=== PATIENT | female | born 1990 | race Caucasian/White ===

== ENCOUNTER 2021-02-12 10:33 | Emergency (ER) | payer OTHER ==
[~2021-02-12] VITALS: Ht 160 cm; Wt 68.0 kg
[2021-02-12 10:43] VITALS: BP 128/91
[2021-02-12] MEDS ORDERED: PROTONIX40 M2 PO (10:47)
[2021-02-12] MEDS ORDERED: CELEBREX 200 M200 M1 PO (10:47)
[2021-02-12] MEDS ORDERED: COMPAZINE10 M2 PO (10:48)
[2021-02-12] MEDS ORDERED: KLONOPIN0.5 MG PO (10:48)
[2021-02-12] MEDS ORDERED: QUETIAPINE FUMA50 M1 PO (10:48)
[2021-02-12] MEDS ORDERED: CONCERTA ER 2727 MG PO (10:49)
[2021-02-12] MEDS ORDERED: CARAFATE1 GM PO (10:50)
[2021-02-12] MEDS ORDERED: EPIPEN0.3 MG/0.1 IM (10:50)
[2021-02-12 10:58] LABS: URINE BILIRUBIN NEGATIVE (Negative); URINE BLOOD NEGATIVE (Negative); URINE COLOR YELLOW; URINE GLUCOSE-RANDOM NEGATIVE (Negative); URINE KETONES NEGATIVE (Negative); URINE LEUKOCYTES-REFLEX NEGATIVE (Negative); URINE NITRITE-REFLEX NEGATIVE (Negative); URINE PROTEIN NEGATIVE (Negative); URINE UROBILINOGEN 0.2 E.U./dl (0.2-1.0)
[2021-02-12 11:06] LABS: URINE CLARITY SL HAZY
[2021-02-12 11:14] LABS: ABSOLUTE BASOPHILS 0.1 thou/uL (0.0-0.2); ABSOLUTE EOSINOPHILS 0.2 thou/uL (0.0-0.7); ABSOLUTE LYMPHOCYTES 2.1 thou/uL (0.8-5.3); ABSOLUTE MONOCYTES 0.9 thou/uL (0.0-1.2); ABSOLUTE NEUTROPHILS 7.4 thou/uL (1.6-8.1); BASOPHILS 0.5 %; EOSINOPHILS 1.7 %; HEMATOCRIT 38.8 % (37.0-47.0); HEMOGLOBIN 13.9 gm/dL (12.0-15.0); LYMPHOCYTES 19.9 %; MCH 31.3 pg (26.0-34.0); MCHC 35.9 g/dL (28.0-37.0); MCV 87.2 fL (80.0-100.0); MONOCYTES 8.8 %; MPV 7.9 fl. (7.2-11.1); NUCLEATED RBCS 0 /100WBC; PLATELET COUNT* 253 thou/uL (150-400); POLYS 69.1 %; RBC 4.45 mil/uL (4.20-5.00); RDW-CV 12.1 % (10.5-14.5); WBC 10.7 thou/uL (4.0-11.0)
[2021-02-12 11:22] LABS: CALCIUM 8.7 mg/dL (8.5-10.1); CREATININE 0.7 mg/dL (0.6-1.3); POTASSIUM 3.9 mmol/L (3.5-5.1)
[2021-02-12 11:25] LABS: MUCUS 0-3 Light strn/LPF (None Seen); SQUAMOUS >10 Many /LPF (0-3)
[2021-02-12 11:27] LABS: BACTERIA-REFLEX 1-9 Few /HPF (None Seen); CASTS None Seen /LPF (None Seen); CRYSTALS None Seen /LPF (None Seen); URINE RBC 0-2 Rare /HPF (0-2); URINE WBC-REFLEX 0-5 Rare /HPF (0-5)
[2021-02-12 11:27] LABS: ALBUMIN 4.1 g/dL (3.4-5.0); TOTAL BILIRUBIN 0.8 mg/dL (<0.1-1.0); TOTAL PROTEIN 7.3 g/dL (6.4-8.2)
[2021-02-12] MEDS ORDERED: TRAMADOL 50 MG50 MG PO (15:59)
[2021-02-12] MEDS ORDERED: CEFDINIR300 MG PO (15:59)
[2021-02-12 16:15] VITALS: BP 118/78
== END 2021-02-12 16:15 | disposition home or self-care (01) ==
LOC: M.ERS 10:33 → M.TBA-ER 13:28 → M.ERS 13:28 → M.TBA-ER 13:28 → M.ERS 16:15
PROVIDERS: Physician Assistant
DX: K52.9 Noninfective gastroenteritis and colitis, unspecified (principal); Z20.822 Contact with and (suspected) exposure to COVID-19; K21.9 Gastro-esophageal reflux disease without esophagitis; Z87.440 Personal history of urinary (tract) infections; Z91.040 Latex allergy status; Z91.013 Allergy to seafood; Z79.899 Other long term (current) drug therapy

== ENCOUNTER 2021-02-13 13:15 | Inpatient (IN) | payer OTHER ==
[~2021-02-13] VITALS: Ht 160 cm; Wt 69.0 kg
[~2021-02-13 13:15] MED LIST: CARAFATE1 GM PO; CEFDINIR300 MG PO; CELEBREX 200 M200 M1 PO; COMPAZINE10 M2 PO; CONCERTA ER 2727 MG PO; EPIPEN0.3 MG/0.1 IM; KLONOPIN0.5 MG PO; PROTONIX40 M2 PO; QUETIAPINE FUMA50 M1 PO; TRAMADOL 50 MG50 MG PO
[2021-02-13 13:36] VITALS: BP 145/96
[2021-02-13 14:19] LABS: ABSOLUTE EOSINOPHILS 0.1 thou/uL (0.0-0.7); ABSOLUTE LYMPHOCYTES 1.7 thou/uL (0.8-5.3); ABSOLUTE MONOCYTES 0.8 thou/uL (0.0-1.2); ABSOLUTE NEUTROPHILS 8.6 thou/uL (1.6-8.1); BASOPHILS 0.3 %; EOSINOPHILS 0.7 %; HEMATOCRIT 38.2 % (37.0-47.0); HEMOGLOBIN 13.6 gm/dL (12.0-15.0); LYMPHOCYTES 15.4 %; MCH 31.4 pg (26.0-34.0); MCHC 35.6 g/dL (28.0-37.0); MCV 88.2 fL (80.0-100.0); MONOCYTES 6.9 %; MPV 8.3 fl. (7.2-11.1); NUCLEATED RBCS 0 /100WBC; PLATELET COUNT* 260 thou/uL (150-400); POLYS 76.7 %; RBC 4.33 mil/uL (4.20-5.00); RDW-CV 12.2 % (10.5-14.5); URINE BILIRUBIN NEGATIVE (Negative); URINE BLOOD NEGATIVE (Negative); URINE CLARITY CLEAR; URINE COLOR YELLOW; URINE GLUCOSE-RANDOM NEGATIVE (Negative); URINE KETONES 1+ (Negative); URINE LEUKOCYTES TRACE (Negative); URINE NITRITE NEGATIVE (Negative); URINE PROTEIN NEGATIVE (Negative); URINE SPECIFIC GRAVITY 1.025 (1.005-1.030); URINE UROBILINOGEN 0.2 E.U./dl (0.2-1.0); WBC 11.2 thou/uL (4.0-11.0)
[2021-02-13 14:27] LABS: BACTERIA 1-9 Few /HPF (None Seen); CASTS None Seen /LPF (None Seen); CRYSTALS None Seen /LPF (None Seen); MUCUS 0-3 Light strn/LPF (None Seen); SQUAMOUS 4-10 Moderate /LPF (0-3); URINE RBC 0-2 Rare /HPF (0-2); URINE WBC 0-5 Rare /HPF (0-5)
[2021-02-13 14:34] LABS: ALBUMIN 3.9 g/dL (3.4-5.0); CALCIUM 8.4 mg/dL (8.5-10.1); CREATININE 0.6 mg/dL (0.6-1.3); POTASSIUM 4.6 mmol/L (3.5-5.1); TOTAL BILIRUBIN 0.8 mg/dL (<0.1-1.0); TOTAL PROTEIN 7.6 g/dL (6.4-8.2)
[2021-02-13 17:30] VITALS: BP 115/54
[2021-02-13 18:22] VITALS: BP 111/73
[2021-02-13 20:00] VITALS: BP 125/76
[2021-02-14 16:57] VITALS: BP 121/74
--- NOTE | 2021-02-14 19:30 | CON ---
[address] [address] CONSULTATION Name: PA SIERRA Room: [address] IN ..#: [id number] Admission: 02/13/21 Attend Phys: Schuyler Pablo Discharge: Date of : 86 Report #: [id number] THIS REPORT FOR: cc: SHANTHI - No family physician/PCP FAM - No family physician/PCP Sal Suero DO ~ cc: Aixa Pearson PA-C DATE OF CONSULTATION: 02/14/2021 Please note at the time of this dictation, the patient was seen and physically examined by myself. REASON FOR CONSULTATION: Nausea and vomiting. HISTORY OF PRESENT ILLNESS: This is a 30-year-old female who has a long-standing history of GERD since the age of 6, who recently underwent an endoscopic evaluation in May in [place] when she was out of town. She had had a significant weight loss at that time of about 25 pounds and she underwent an EGD and a colonoscopy at that time and was determined she had a lot of inflammation, was placed on pantoprazole 40 mg daily as well as Carafate 4 times a day. She states she still has significant issues with acid reflux. She recently went and saw her PCP and she is scheduled to have an EGD forthcoming with a GI doctor in [place] in the next week or so. The patient also states she has intermittent issues with constipation and then diarrhea. She states every morning she goes to the bathroom and is a little constipated and then she has diarrhea thereafter. She does not take anything regularly for her bowels. She states her symptoms are usually related to stress and she does have a lot of past history of anxiety as well. The patient states that after she had a very large bowel movement and passed a lot of gas this morning, her symptoms have gone away. She states she is feeling much better. She always has some wave of nausea that is persistent all the time, but has not had any vomiting since yesterday. She would like to advance her diet and see if she can get out of here later today and follow up with the GI doctor in [place], which is already scheduled. She also did ____ her colonoscopy, told her that she did have a polyp at that time as well. In getting her H and P, the patient is all over the place as far as what is going on with her. She also tells me that she is under the process of being evaluated for Kael-Danlos syndrome currently with her PCP. ALLERGIES: LATEX AND WASP STINGS. MEDICATIONS FROM HOME: Pantoprazole, Celebrex, Quetiapine Fumarate, compazine, Klonopin, Concerta, Carafate [place] [address] CONSULTATION Name: LUANNEHAEVERETT PerezPA A Room: [address] IN [facility]#: [id number] Admission: 02/13/21 Attend Phys: Schuyler Pablo Discharge: Date of : 86 Report #: [id number] PAST MEDICAL HISTORY: EDS, DDD, repeated kidney infections, GERD and gastritis. PAST SURGICAL HISTORY: Negative. FAMILY HISTORY: Father Crohn's and a pituitary adenoma. Mother and maternal grandmother, James's thyroiditis. SOCIAL HISTORY: She does smoke marijuana regularly. Denies any alcohol or tobacco use and she is a automotive electrician. REVIEW OF SYSTEMS: Twelve-point review of systems essentially negative except what is mentioned in the HPI. PHYSICAL EXAMINATION: VITAL SIGNS: Temperature 36.7, pulse 74, respirations 18, blood pressure 125/76. HEART: Regular rate and rhythm. LUNGS: Clear. ABDOMEN: Soft. Positive bowel sounds in all 4 quadrants with no masses or tenderness noted. LABORATORY DATA: Hemoglobin 13.6, white count is 11.2, platelets 260. LFTs are normal. Lipase is 15. Her GFR is 116. Abdominal x-ray is unremarkable. CT from the day before when she was in the emergency room showed spleen at 12.2 cm borderline, liver mildly enlarged at 18 with fatty infiltration. Gallbladder intact. No ductal dilatation. Stomach, small amount of fluid noted. Small bowel was normal. Colon, [id number] stool in the cecum and descending. Evacuation of the mid and distal colon with diffuse wall thickening and mild mucosal enhancement. Large amount of stool in the sigmoid region. Otherwise, mild segmental colitis in the mid transverse. IMPRESSION: 1. Nausea and vomiting, improved. 2. Constipation, diarrhea alternating. 3. Gastroesophageal reflux disease, worsening despite treatment. 4. Abnormal CT. Some mid transverse colitis. 5. Currently being worked up for Kael-Danlos syndrome. 6. Family history: Father, Crohn's. Mother and maternal grandmother, James's. 7. History of THC use regularly. PLAN: 1. The patient does not want to stay and have any endoscopic evaluation at this time. She already has an appointment scheduled with a GI doctor in [address] [address] CONSULTATION Name: PA SIERRA Room: [address] M.R.#: [id number] Admission: 02/13/21 Attend Phys: Schuyler Pablo Discharge: Date of : 86 Report #: [id number] [place], which she cannot remember their name. 2. We will start clear liquids and advance as tolerated. 3. If she is able to do all of this, the patient prefers to go home with some Zofran and follow up with the GI she is already scheduled with as an outpatient. Thank you for allowing us to participate in this patient's care. Please do not hesitate to call with any questions regarding this consult. <ELECTRONICALLY SIGNED> By: Sal Suero DO 02/14/21 1930 [id number] Suero DO /nt
[2021-02-14] MEDS ORDERED: ZOFRAN ODT4 MG DISSOLVE (20:01)
[2021-02-14] MEDS ORDERED: AUGMENTIN 875-1 EACH PO (20:03)
[2021-02-14 20:15] VITALS: BP 121/74
== END 2021-02-14 20:42 | disposition home or self-care (01) | DRG 392 ==
LOC: M.ERS 13:15 → M.TBA-ER 15:01 → M.3W 15:01
PROVIDERS: Physician Assistant; ADMIT Internal Medicine; ATTEND Internal Medicine
DX: K52.9 Noninfective gastroenteritis and colitis, unspecified (principal); K21.9 Gastro-esophageal reflux disease without esophagitis; E86.0 Dehydration; K59.00 Constipation, unspecified; F41.9 Anxiety disorder, unspecified; Z20.822 Contact with and (suspected) exposure to COVID-19; Z79.899 Other long term (current) drug therapy; Z91.030 Bee allergy status; Z91.040 Latex allergy status